=== PATIENT | female | born 1995 | race African-American/Black ===

== ENCOUNTER 2022-08-07 21:55 | Emergency (ER) | payer MEDICAID ==
[~2022-08-07] VITALS: Ht 165.1 cm; Wt 71.5 kg
[2022-08-07 22:04] VITALS: BP 133/77
[2022-08-08] MEDS ORDERED: IBUPROFEN 600MG TABLET PO ONE (00:15)
[2022-08-08] MEDS ORDERED: LORAZEPAM 0.5MG TABLET PO ONE (00:15)
[2022-08-08] MEDS ORDERED: IBUP-2028 MT (01:31)
== END 2022-08-08 02:51 | disposition home or self-care (01) ==
LOC: ER 21:55
DX: M25.511 Pain in right shoulder (principal); M54.2 Cervicalgia; M79.644 Pain in right finger(s); V49.9XXA Car occupant (driver) (passenger) injured in unspecified traffic accident, initial encounter; Y93.89 Activity, other specified; Y92.89 Other specified places as the place of occurrence of the external cause; Y99.8 Other external cause status
CPT/HCPCS: 73030; 73130; 99284